=== PATIENT | female | born 1985 | race Two or more races ===

== ENCOUNTER 2017-07-22 11:01 | Emergency (ER) | payer MEDICAID ==
[~2017-07-22] VITALS: Ht 165.1 cm; Wt 65.0 kg
[~2017-07-22 11:01] MED LIST: OMEP20CA4
[2017-07-22 14:47] VITALS: BP 103/64
[2017-07-22] MEDS ORDERED: TETRACAINE 0.5% OPHTH DROPS 4ML BOTHEYE ONE (15:15)
[2017-07-22] MEDS ORDERED: FLUORESCEIN SODIUM 1MG/STRIP BOTHEYE ONE (15:15)
== END 2017-07-22 15:49 | disposition home or self-care (01) ==
LOC: ER 12:20
DX: H10.9 Unspecified conjunctivitis (principal)
CPT/HCPCS: 81025; 99283

== ENCOUNTER 2018-05-17 12:33 | Inpatient (IN) | payer OTHER, MEDICAID ==
[~2018-05-17] VITALS: Ht 162.6 cm; Wt 49.9 kg
[2018-05-17] MEDS ORDERED: SODIUM CHLORIDE 0.9% 1,000 ML IV ONE (13:38)
[2018-05-17] MEDS ORDERED: ASPIRIN 81MG TABLET PO ONE (13:45)
[2018-05-17 14:16] LABS: BASOPHILS % 0.5 % (0.0-2.0); EOSINOPHILS % 0.7 % (0.0-5.0); HEMATOCRIT. 31.8 % (36.0-48.0); HEMOGLOBIN. 10.5 g/dL (12.0-16.0); LYMPHOCYTES % 10.5 % (20.0-50.0); MEAN CORPUSCULAR HEMOGLOBIN 27.1 pg (28.0-32.0); MEAN PLATELET VOLUME 7.7 fl (7.4-10.4); MONOCYTES % 6.6 % (2.0-8.0); NEUTROPHILS % 81.7 % (40.0-76.0); PLATELET 236 x1000/uL (130-400); RED BLOOD CELL COUNT 3.87 mill/uL (4.2-5.4); RED CELL DISTRIBUTION WIDTH 16.3 % (11.6-14.6)
[2018-05-17 14:26] LABS: CHLORIDE 107 mEq/L (98-107)
[2018-05-17 14:28] LABS: D-DIMER 0.43 mg/L FEU (<0.50); INR 1.2; PARTIAL THROMBOPLASTIN TIME 27.2 sec (23.4-31.0)
[2018-05-17 14:37] LABS: HCG SCREEN NEGATIVE
[2018-05-17] MEDS ORDERED: ACETAMINOPHEN 325MG TABLET PO PRN (22:00)
[2018-05-18] VITALS (7 sets, daily range): BP systolic 100–112; BP diastolic 50–80
[2018-05-18 07:35] LABS: BASOPHILS % 0.5 % (0.0-2.0); EOSINOPHILS % 1.8 % (0.0-5.0); HEMATOCRIT. 31.6 % (36.0-48.0); HEMOGLOBIN. 10.9 g/dL (12.0-16.0); LYMPHOCYTES % 27.6 % (20.0-50.0); MEAN CORPUSCULAR HEMOGLOBIN 27.9 pg (28.0-32.0); MEAN CORPUSCULAR VOLUME 80.6 fL (81.0-99.0); MEAN PLATELET VOLUME 8.2 fl (7.4-10.4); MONOCYTES % 9.8 % (2.0-8.0); NEUTROPHILS % 60.3 % (40.0-76.0); PLATELET 237 x1000/uL (130-400); RED BLOOD CELL COUNT 3.92 mill/uL (4.2-5.4); RED CELL DISTRIBUTION WIDTH 16.2 % (11.6-14.6)
[2018-05-18 09:23] LABS: CHLORIDE 109 mEq/L (98-107)
[2018-05-18 09:54] LABS: *BENZODIAZEPINES SCREEN URINE NEGATIVE (NEGATIVE); *COCAINE SCREEN URINE NEGATIVE (NEGATIVE)
[2018-05-18 09:55] LABS: *AMPHETAMINES SCREEN URINE NEGATIVE (NEGATIVE); *BARBITURATES SCREEN URINE NEGATIVE (NEGATIVE); METHADONE URINE SCREEN NEGATIVE (NEGATIVE); OPIATES URINE SCREEN NEGATIVE (NEGATIVE); PHENCYCLIDINE URINE SCREEN NEGATIVE (NEGATIVE)
[2018-05-18 10:03] LABS: CANNABINOID URINE SCREEN PRESUMTIVE POSITIVE (NEGATIVE)
[2018-05-19] VITALS (7 sets, daily range): BP systolic 97–119; BP diastolic 47–76
[2018-05-19 07:27] LABS: BASOPHILS % 0.9 % (0.0-2.0); EOSINOPHILS % 2.2 % (0.0-5.0); HEMATOCRIT. 31.9 % (36.0-48.0); HEMOGLOBIN. 10.9 g/dL (12.0-16.0); LYMPHOCYTES % 35.7 % (20.0-50.0); MEAN CORPUSCULAR HEMOGLOBIN 27.7 pg (28.0-32.0); MEAN PLATELET VOLUME 7.9 fl (7.4-10.4); MONOCYTES % 12.6 % (2.0-8.0); NEUTROPHILS % 48.6 % (40.0-76.0); PLATELET 248 x1000/uL (130-400); RED BLOOD CELL COUNT 3.94 mill/uL (4.2-5.4); RED CELL DISTRIBUTION WIDTH 16.1 % (11.6-14.6)
[2018-05-19 08:08] LABS: CHLORIDE 107 mEq/L (98-107)
[2018-05-19] MEDS ORDERED: MAGNESIUM 1 G PREMIX 100 ML IV NR (13:00)
== END 2018-05-19 18:22 | disposition home or self-care (01) | DRG 204 ==
LOC: ER 12:48 → 7WST 15:16 → EDBEDREQ 15:26 → ENRESERV 23:30 → 7WST 05-18 15:18
PROVIDERS: ADMIT Specialist; ATTEND Specialist
DX: I95.1 Orthostatic hypotension (principal); D50.9 Iron deficiency anemia, unspecified; F12.10 Cannabis abuse, uncomplicated; I45.10 Unspecified right bundle-branch block; I49.3 Ventricular premature depolarization; I51.7 Cardiomegaly; K21.9 Gastro-esophageal reflux disease without esophagitis; Z87.74 Personal history of (corrected) congenital malformations of heart and circulatory system; Z79.899 Other long term (current) drug therapy
CPT/HCPCS: 36415; 71045; 78582; 80048; 80305; 83540; 83550; 83735; 83880; 84443; 84484; 84703; 85379; 93005; 93306; 96360; 96361; 99285; A9558; J3475; J7030

== ENCOUNTER 2019-07-11 15:53 | Emergency (ER) | payer MEDICAID ==
[~2019-07-11] VITALS: Ht 162.6 cm; Wt 61.0 kg
[2019-07-11] MEDS ORDERED: SODIUM CHLORIDE 0.9% 1,000 ML IV NR (17:30)
[2019-07-11 17:55] LABS: CHLORIDE 101 mEq/L (98-107)
[2019-07-11 18:03] LABS: BASOPHILS % 0.2 % (0.0-2.0); HEMATOCRIT. 40.1 % (36.0-48.0); HEMOGLOBIN. 13.5 g/dL (12.0-16.0); LYMPHOCYTES % 14.7 % (20.0-50.0); MEAN CORPUSCULAR HEMOGLOBIN 26.8 pg (28.0-32.0); MEAN CORPUSCULAR VOLUME 79.9 fL (81.0-99.0); MEAN PLATELET VOLUME 8.2 fl (7.4-10.4); MONOCYTES % 8.1 % (2.0-8.0); PLATELET 213 x1000/uL (130-400); RED BLOOD CELL COUNT 5.02 mill/uL (4.2-5.4)
[2019-07-11 18:04] LABS: T4 FREE 1.49 ng/dL (0.76-1.46)
[2019-07-11] MEDS ORDERED: SODIUM CHLORIDE 0.9% 1,000 ML IV ONE (20:30)
[2019-07-11 21:20] LABS: CLARITY URINE TURBID (CLEAR); COLOR URINE DARK YELLOW (YELLOW); KETONES URINE 1+ (NEGATIVE); LEUKOCYTE ESTERASE URINE TRACE (NEGATIVE); NITRITE URINE NEGATIVE (NEGATIVE); OCCULT BLOOD URINE 3+ (NEGATIVE); PROTEIN URINE 2+ (NEGATIVE); SPECIFIC GRAVITY URINE 1.033 (1.005-1.030)
[2019-07-11 21:31] LABS: *AMPHETAMINES SCREEN URINE NEGATIVE (NEGATIVE); *BARBITURATES SCREEN URINE NEGATIVE (NEGATIVE); *BENZODIAZEPINES SCREEN URINE NEGATIVE (NEGATIVE); *COCAINE SCREEN URINE NEGATIVE (NEGATIVE); METHADONE URINE SCREEN NEGATIVE (NEGATIVE); OPIATES URINE SCREEN NEGATIVE (NEGATIVE)
[2019-07-11 21:33] LABS: PHENCYCLIDINE URINE SCREEN NEGATIVE (NEGATIVE)
[2019-07-11 21:41] LABS: CANNABINOID URINE SCREEN PRESUMTIVE POSITIVE (NEGATIVE)
[2019-07-11] MEDS ORDERED: ACETAMINOPHEN 325MG TABLET PO ONE (22:15)
[2019-07-11] MEDS ORDERED: KETOROLAC 15MG/ML VIAL IV ONE (22:15)
[2019-07-12 00:09] VITALS: BP 110/60
== END 2019-07-12 00:12 | disposition home or self-care (01) ==
LOC: ER 15:53
DX: J06.9 Acute upper respiratory infection, unspecified (principal); R05 Cough; R00.2 Palpitations; R07.89 Other chest pain; M79.18 Myalgia, other site; F12.10 Cannabis abuse, uncomplicated
CPT/HCPCS: 36415; 71045; 80053; 80305; 81003; 81025; 83880; 84439; 84443; 84484; 85025; 87804; 93005; 96361; 96374; 99284; J1885; J7030

== ENCOUNTER 2021-02-05 20:10 | Emergency (ER) | payer MEDICAID ==
[~2021-02-05] VITALS: Ht 162.6 cm; Wt 52.0 kg
[2021-02-05] MEDS ORDERED: ONDANSETRON HCL 4MG/2ML INJ IV ONE (23:00)
[2021-02-05] MEDS ORDERED: ACETAMINOPHEN 500MG TABLET PO ONE (23:00)
[2021-02-05] MEDS ORDERED: HALOPERIDOL LACTATE 5MG/ML VIAL IM ONE (23:00)
[2021-02-05 23:52] LABS: CLARITY URINE CLOUDY (CLEAR); COLOR URINE DARK YELLOW (YELLOW); KETONES URINE TRACE (NEGATIVE); LEUKOCYTE ESTERASE URINE NEGATIVE (NEGATIVE); NITRITE URINE NEGATIVE (NEGATIVE); OCCULT BLOOD URINE NEGATIVE (NEGATIVE); PH URINE 5.5 (4.5-8.0); PROTEIN URINE 2+ (NEGATIVE); SPECIFIC GRAVITY URINE 1.032 (1.005-1.030)
[2021-02-06 00:07] LABS: *AMPHETAMINES SCREEN URINE NEGATIVE (NEGATIVE); *BARBITURATES SCREEN URINE NEGATIVE (NEGATIVE); *BENZODIAZEPINES SCREEN URINE NEGATIVE (NEGATIVE); *COCAINE SCREEN URINE NEGATIVE (NEGATIVE); METHADONE URINE SCREEN NEGATIVE (NEGATIVE); OPIATES URINE SCREEN NEGATIVE (NEGATIVE); PHENCYCLIDINE URINE SCREEN NEGATIVE (NEGATIVE)
[2021-02-06 00:20] LABS: CANNABINOID URINE SCREEN PRESUMTIVE POSITIVE (NEGATIVE)
[2021-02-06 00:30] LABS: CHLORIDE 105 mEq/L (98-107)
[2021-02-06 00:53] LABS: HEMATOCRIT 35.7 % (36.0-48.0); HEMOGLOBIN 11.9 g/dL (12.0-16.0); MEAN CORPUSCULAR HEMOGLOBIN 25.9 pg (28.0-32.0); MEAN CORPUSCULAR VOLUME 77.5 fL (81.0-99.0); PLATELET 213 x1000/uL (130-400); RED CELL DISTRIBUTION WIDTH 16.9 % (11.6-14.6)
[2021-02-06 02:00] VITALS: BP 107/62
[2021-02-08] MEDS ORDERED: IBUP-2029 MT (08:00)
[2021-02-08] MEDS ORDERED: CYCL10TA7 MT (08:00)
== END 2021-02-06 02:01 | disposition home or self-care (01) ==
LOC: ER 20:10
DX: R11.2 Nausea with vomiting, unspecified (principal); F12.90 Cannabis use, unspecified, uncomplicated; R10.9 Unspecified abdominal pain; I51.9 Heart disease, unspecified; R56.9 Unspecified convulsions
CPT/HCPCS: 36415; 80053; 80305; 81003; 81025; 83605; 84145; 85027; 87040; 93005; 96372; 96374; 99284; C9803; J1630; J2405; U0003; U0005